=== PATIENT | female | born 1945 | race Caucasian/White ===

== ENCOUNTER 2017-01-20 17:37 | Emergency (ER) | payer OTHER ==
[~2017-01-20] VITALS: Ht 162.6 cm; Wt 77.1 kg
[2017-01-20 18:41] LABS: ABSOLUTE BASOPHIL COUNT 0 /CUMM (0.0-0.2); ABSOLUTE EOSINOPHIL COUNT 0.2 /CUMM (0.0-0.7); ABSOLUTE GRANULOCYTE CT 7.3 /CUMM (1.4-6.5); ABSOLUTE LYMPH COUNT 2.2 /CUMM (1.2-3.4); ABSOLUTE MONOCYTE COUNT 0.5 /CUMM (0.10-0.60); BASOPHIL % 0.3 % (0.0-2.0); EOSINOPHIL % 1.8 % (0-5); GRANULOCYTE % 71.2 % (42.2-75.2); HEMATOCRIT 41.5 % (37-47); MEAN CORPUSCULAR HGB 28.8 PG (27.0-31.0); MEAN CORPUSCULAR HGB CONC 33.6 G/DL (33.0-37.0); MEAN CORPUSCULAR VOLUME 85.6 FL (81.0-99.0); MEAN PLATELET VOLUME 7.1 FL (7.4-10.4); PLATELET COUNT 263 /CUMM (130-400); RBC DISTRIBUTION WIDTH 14.2 % (11.5-14.5); RED BLOOD CELL CT 4.85 /CUMM (4.20-5.40); WHITE BLOOD CELL COUNT 10.2 /CUMM (4.8-10.8)
--- NOTE | 2017-01-20 18:43 | RADIOLOGY REPORT ---
EXAMINATION: XR CHEST CLINICAL INFORMATION: Right upper chest pain. COMPARISON: Chest x-ray 10/12/2010 TECHNIQUE: 2 views of the chest were obtained. FINDINGS: No significant abnormality is noted involving the heart, lungs, mediastinum, bony thorax or soft tissues. IMPRESSION: Normal chest.
--- NOTE | 2017-01-20 19:01 | ED CARDIAC/CP/PALPITATIONS ---
History of Present Illness General Chief Complaint: Chest Pain Stated Complaint: CP X 8HRS Source: patient Exam Limitations: no limitations Vital Signs & Intake/Output Vital Signs & Intake/Output Vital Signs Date Time Temp Pulse Resp B/P Pulse O2 O2 Flow FiO2 Ox Delivery Rate 01/20 2346 98.7 68 18 142/64 97 Room Air 01/20 2121 97.9 65 16 147/70 96 Room Air 01/20 1807 98.3 63 20 150/75 98 Room Air ED Intake and Output 01/21 0000 01/20 1200 Intake Total 0 Output Total Balance 0 Intake, Oral 0 Patient 170 lb Weight Allergies Coded Allergies: rosuvastatin (From CRESTOR) (Intermediate, RAPID HEART RATE 01/20/17) Penicillins (Mild, RASH, HIVES 01/20/17) atorvastatin (From LIPITOR) (Mild, UNKNOWN 01/20/17) cephalexin (From KEFLEX) (Mild, RASH 01/20/17) erythromycin base (Mild, RASH, HIVES 01/20/17) propoxyphene (From DARVON) (Mild, UNKNOWN 01/20/17) Fish Containing Products (SWORD FISH - ANAPHYLAXIS 01/20/17) Reconcile Medications Amlodipine Besylate 5 MG TABLET 1 TAB PO DAILY BP (Reported) Aspirin (Ecotrin*) 81 MG TABLET.DR 1 TAB PO DAILY HEART/BLOOD (Reported) Atenolol 50 MG TABLET 1 TAB PO DAILY BP (Reported) Ezetimibe (Zetia) 10 MG TABLET 1 TAB PO DAILY CHOLESTEROL (Reported) Levothyroxine Sodium (Synthroid) 75 MCG TABLET 1 TAB PO DAILY THYROID ( Reported) Triage Note: RECEIVED 72 YO FEMALE C/O INTERMITTENT LEFT UPPER CHEST PAIN, STARTED THIS AM. NO C/O ASSOCIATED DIAPHORESIS OR SOB. NO PAIN IN TRIAGE Triage Nurses Notes Reviewed? yes Onset: Abrupt Duration: gone now, intermittent Timing: multiple episodes today Quality/Severity: moderate Radiation: no radiation Activities at Onset: none Prior Chest Pain/Card Workup: no prior chest pain Nitro Today/Relief: no nitro taken today Aspirin Today: 81 mg x 1 HPI: Patient is a 72-year-old female with a past medical history of hypothyroidism, hypertension and hyperlipidemia who presents emergency and that today patient was in her normal state of health and approximately at 9 AM while at rest patient had acute onset of left-sided anterior chest pain in which patient cannot exactly describe the characteristics of the pain however she states that the pain has been coming and going throughout the entire day patient states last pain episode was approximately one hour prior to being evaluated-01/20/2017 7:00: 48 PM Patient denies any smoking history denies any illicit drugs or alcohol use. Denies any fever chills or arm pain jaw pain nausea vomiting palpitations diaphoresis leg swelling hemoptysis cough shortness of breath recent travel recent surgery history of DVT or PE. Patient does take an 81 mg of aspirin which she took today Denies any back pain Currently patient is asymptomatic Patient does state that she has a few years ago history of a nuclear stress test was unremarkable findings - her vendor management specialist Dr. ALLISON (ADEOLA WISE) Past History Travel History Traveled to [place] past 21 day No Medical History Any Pertinent Medical History? see below for history Neurological: NONE EENT: NONE Cardiovascular: hypertension Respiratory: NONE Gastrointestinal: NONE Hepatic: NONE Renal: NONE Musculoskeletal: NONE Psychiatric: NONE Endocrine: hypothyroidism Blood Disorders: NONE Cancer(s): NONE Surgical History Surgical History: non-contributory Psychosocial History What is your primary language Czech Tobacco Use: Never used Family History Hx Contributory? No (ADEOLA WISE) Review of Systems Review of Systems Constitutional: Reports: no symptoms. EENTM: Reports: no symptoms. Respiratory: Reports: no symptoms. Cardiovascular: Reports: see HPI, chest pain. Denies: edema, peripheral edema. GI: Reports: no symptoms. Genitourinary: Reports: no symptoms. Musculoskeletal: Reports: no symptoms. Skin: Reports: no symptoms. Neurological/Psychological: Reports: no symptoms. Hematologic/Endocrine: Reports: no symptoms. Immunologic/Allergic: Reports: no symptoms. All Other Systems: Reviewed and Negative (ADEOLA WISE) Physical Exam Physical Exam General Appearance: no apparent distress, alert Cardiovascular: regular rate/rhythm Comments: Well-developed well-nourished person in no acute distress HEENT: Normal EENT exam, Neck: Supple, no lymphadenopathy, normal range of motion without pain or tenderness Back: Nontender, no CVA tenderness. Cardiovascular: Regular rate and rhythms no murmurs rubs or gallops, normal JVP Respiratory: Chest nontender. No respiratory distress.breath sounds clear to auscultation bilaterally Abdomen: Soft, nontender nondistended, no appreciable organomegaly. Normal bowel sounds. No ascites Extremity: No edema, no calf tenderness to palpation, normal and equal pulses. Neuro: Alert oriented x3, motor sensory normal, Skin: No appreciable rash on exposed skin, skin is warm and dry. Psych: Mood and affect is normal, memory and judgment is normal. Core Measures ACS in differential dx? Yes Severe Sepsis Present: No Septic Shock Present: No (CARLO NEAL,ADEOLA) Progress Differential Diagnosis: AMI, aortic dissection, atrial fibrillation, cholecystitis, CHF/pulm edema, costochondritis, hyperkalemia, hypovolemia, hyperthyroid, hyperventilation, intracranial hemorrhage, musculoskeletal pain, myocarditis, pancreatitis, pericarditis, pneumonia, pneumothorax, PSVT, pulmonary embolism, PUD/GERD, PVCs/PACs, respiratory failure, rib fracture, sepsis, unstable angina, V-fib/V-Tach, WPW syndrome Plan of Care: Orders Procedure Date/time Status TROPONIN LEVEL 01/20 2215 Complete EKG 01/20 2215 Active Add-on Test (ER Only) 01/20 1902 Active Telemetry/Rn Telephonic 01/20 1902 Active THYROID STIMULATING HORMONE 01/20 181 Complete THYROXINE 01/20 181 Complete D-DIMER 01/20 181 Complete TROPONIN LEVEL 01/20 180 Complete COMPREHENSIVE METABOLIC PANEL 01/20 180 Complete CBC WITHOUT DIFFERENTIAL 01/20 180 Complete EKG 01/20 1738 Active Laboratory Tests 01/20/17 2202: Troponin I < 0.01 01/20/17 1902: D-Dimer Cancelled 01/20/17 1813: Anion Gap 10, Estimated GFR > 60, BUN/Creatinine Ratio 18.9, Glucose 101 H, Calcium 11.3 H, Total Bilirubin 1.2, AST 38 H, ALT 48, Alkaline Phosphatase 80 , Troponin I < 0.01, Total Protein 8.2, Albumin 4.6, Globulin 3.6, Albumin/ Globulin Ratio 1.3, TSH 2.110, Thyroxine (T4) 10.5, D-Dimer < 200, CBC w Diff NO MAN DIFF REQ, RBC 4.85, MCV 85.6, MCH 28.8, RDW 14.2, MPV 7.1 L, Gran % 71.2, Lymphocytes % 21.9, Monocytes % 4.8, Eosinophils % 1.8, Basophils % 0.3, Absolute Granulocytes 7.3 H, Absolute Lymphocytes 2.2, Absolute Monocytes 0.5, Absolute Eosinophils 0.2, Absolute Basophils 0, PUBS MCHC 33.6 Patient on physical examination looks well no apparent distress and was asymptomatic had unremarkable physical exam finding personal caregiver placed sinus rhythm noted on EKG. 01/20/2017 9:13:36 PM patient was reevaluated on multiple occasions noted to be normal sinus rhythm on personal caregiver and patient had no exacerbation of presenting complaints. D-dimer was unremarkable essentially ruling out pulmonary embolism. Troponin was unremarkable FIRST SET, patient will be receiving a second set 4 hours after the initial test which this will be drawn at 2215. Patient had second set of cardiac troponin negative repeat EKG was negative discussed disposition plan with Dr. Marrero who agrees. Patient was strongly advised to monitor follow-up with vendor management specialist and return to emergency room if symptoms worsen (ADEOLA WISE) Diagnostic Imaging: Viewed by Me: Radiology Read. Radiology Impression: no acute abnormality, no fracture Initial ED EKG: normal intervals, normal p-waves, normal QRS complex, 64 BPM NORMAL SINUS RHYTHM Repeat EKG: unchanged Comments: PATIENT: LYNN WILLIAM PRESENT AGE: 72 PATIENT ACCOUNT NO: [id number] : 47 LOCATION: [facility] ORDERING PHYSICIAN: MANDA JEONG MD SERVICE DATE: 01/20/17 EXAM TYPE: RAD - XRY-CHEST XRAY, PA AND LATERAL EXAMINATION: XR CHEST CLINICAL INFORMATION: Right upper chest pain. COMPARISON: Chest x-ray 10/12/2010 TECHNIQUE: 2 views of the chest were obtained. FINDINGS: No significant abnormality is noted involving the heart, lungs, mediastinum, bony thorax or soft tissues. IMPRESSION: Normal chest. (ADEOLA WISE) Departure Departure Disposition: HOME OR SELF CARE Condition: Stable Clinical Impression Primary Impression: Chest pain Referrals: SHAI NAYLOR MD (PCP/Family) Additional Instructions: As discussed tomorrow first thing follow-up to make an appointment with your vendor management specialist Dr. ALLISON for further evaluation treatment. Continue all medications as directed. If symptoms worsen return to emergency room Departure Forms: Customer Survey General Discharge Information (ADEOLA WISE) PA/MATERIAL ASSISTANT Co-Sign Statement Statement: ED Attending supervision documentation- [X] I saw and evaluated the patient. I have also reviewed all the pertinent lab results and diagnostic results. I agree with the findings and the plan of care as documented in the PA's/MATERIAL ASSISTANT's documentation. [X] I have reviewed the ED Record and agree with the PA's/MATERIAL ASSISTANT's documentation. [] Additions or exceptions (if any) to the PAs/MATERIAL ASSISTANT's note and plan are summarized below: [] (JOYA LUCAS,ROBSON Veras) Critical Care Note Critical Care Note Critical Care Time: non-applicable (ADEOLA WISE)
[2017-01-20] MEDS ORDERED: ATENOLOL50 M1 PO (20:38)
[2017-01-20] MEDS ORDERED: AMLODIPINE BESYL5 M1 PO (20:38)
[2017-01-20] MEDS ORDERED: SYNTHROID75 MCG PO (20:38)
[2017-01-20] MEDS ORDERED: ZETIA10 M1 PO (20:39)
[2017-01-20] MEDS ORDERED: ASPIRIN EC81 M1 PO (20:40)
[2017-01-20 23:46] VITALS: BP 142/64
== END 2017-01-20 23:47 ==
LOC: ERH 17:37
PROVIDERS: Emergency Medicine
DX: R07.89 Other chest pain (principal); E03.9 Hypothyroidism, unspecified
CPT/HCPCS: 93005; 93010